=== PATIENT | female | born 1985 | race Caucasian/White ===

== ENCOUNTER 2025-03-18 09:54 | Inpatient (IN) | payer MEDICAID ==
[~2025-03-18] VITALS: Ht 162.6 cm; Wt 128.5 kg
[2025-03-18 10:26] VITALS: BP 154/95
[2025-03-18] MEDS ORDERED: Ondansetron Hydrochloride 4 MG/2 ML VIAL IV ONE (10:45)
[2025-03-18] MEDS ORDERED: SODIUM CHLORIDE 0.9% 1,000 ML IV ONE (10:45)
[2025-03-18] MEDS ORDERED: MORPHINE Sulfate 2 MG/ML SYR IV ONE (10:45)
[2025-03-18 10:54] LABS: BASO % 0.4 % (0.0-1.0); EOS # 0.4 10*3/uL (0.0-0.4); EOS % 5.5 % (1.0-4.0); HEMATOCRIT 46.6 % (37.0-47.0); MEAN CELL VOLUME 90.1 fl (81.0-99.0); MEAN CORPUSCULAR HGB 29.6 pg (27.0-31.0); MEAN CORPUSCULAR HGB CONC 32.8 g/dl (33.0-37.0); MEAN PLATELET VOLUME 9.7 fl (9.6-12.3); MONO # 0.5 10*3/uL (0.1-1.0); MONO % 6.6 % (3.0-9.0); NEUT # 4.3 10*3/uL (2.3-7.9); NEUT % 55.3 % (47.0-73.0); PLATELET COUNT AUTOMATED 341 10*3/uL (130-400); RED BLOOD COUNT 5.17 10*6/uL (4.10-5.10); RED CELL DISTRI WIDTH 13.2 % (0-14.5); WHITE BLOOD COUNT 7.7 10*3/uL (4.8-10.8)
[2025-03-18] MEDS ORDERED: IOHEXOL 300 MG/ML 100 ML VIAL IV ONE (11:10)
[2025-03-18 11:12] LABS: ALKALINE PHOSPHATASE 55 U/L (46-116); BUN 7 mg/dl (9-23); CHLORIDE 105 mmol/L (98-107); LIPASE 30 U/L (12-53); POTASSIUM 4.1 mmol/L (3.4-5.1); SGPT/ALT 15 U/L (5-49); TOTAL PROTEIN 7.5 gm/dL (6.0-8.0)
[2025-03-18 12:03] LABS: BILIRUBIN Negative (Negative); BLOOD Negative (Negative); CLARITY Cloudy (Clear); COLOR Yellow (Yellow); GLUCOSE Negative (Negative); KETONE Negative (Negative); LEUKO ESTERASE 1+ (Negative); NITRITE Negative (Negative); PH 5.5 (4.5-8.0)
[2025-03-18 12:30] LABS: BACTERIA 1+
[2025-03-18] MEDS ORDERED: Piperacillin Sodium/Tazobact 50 ML IV ONE (12:30)
[2025-03-18] MEDS ORDERED: Magnesium Hydroxide 30 ML UDC PO PRN (13:35)
[2025-03-18] MEDS ORDERED: ACETAMINOPHEN 650 MG SUPP R PRN (13:35)
[2025-03-18] MEDS ORDERED: MORPHINE Sulfate 2 MG/ML SYR IV PRN (13:35)
[2025-03-18] MEDS ORDERED: Ondansetron Hydrochloride 4 MG/2 ML VIAL IV PRN (13:35)
[2025-03-18] MEDS ORDERED: BISACODYL 10 MG SUPP R PRN (13:35)
[2025-03-18] MEDS ORDERED: BISACODYL 5 MG TAB PO PRN (13:35)
[2025-03-18] MEDS ORDERED: ACETAMINOPHEN 325 MG TAB PO PRN (13:35)
[2025-03-18] MEDS ORDERED: SODIUM CHLORIDE 0.9% 1,000 ML IV SCH (13:40)
[2025-03-18 17:15] VITALS: BP 128/76
[2025-03-18] MEDS ORDERED: Piperacillin Sodium/Tazobact 50 ML IV SCH (18:00)
[2025-03-18 21:30] VITALS: BP 139/77
[2025-03-19] VITALS: BP 138/70
[2025-03-19] MEDS ORDERED: Pantoprazole Sodium 40 MG TAB PO SCH (06:00)
[2025-03-19 07:09] LABS: ACT PARTIAL THROMBO TIME 28.1 SECONDS (20.0-32.1)
[2025-03-19 07:43] LABS: ALKALINE PHOSPHATASE 50 U/L (46-116); BUN 6 mg/dl (9-23); CHLORIDE 104 mmol/L (98-107); CHOLESTEROL 181 mg/dL (<200); FREE T4 1.18 ng/dl (0.89-1.76); LDL CHOLESTEROL 125 mg/dL (9-159); POTASSIUM 4.1 mmol/L (3.4-5.1); SGPT/ALT 14 U/L (5-49); TOTAL PROTEIN 7.1 gm/dL (6.0-8.0); TRIGLYCERIDES 119 mg/dl (<150)
[2025-03-19 08:00] VITALS: BP 136/96; BP 153/92
[2025-03-19 08:21] LABS: BASO % 0.5 % (0.0-1.0); EOS # 0.4 10*3/uL (0.0-0.4); EOS % 4.9 % (1.0-4.0); HEMATOCRIT 45.7 % (37.0-47.0); MEAN CELL VOLUME 90.7 fl (81.0-99.0); MEAN CORPUSCULAR HGB 29.2 pg (27.0-31.0); MEAN CORPUSCULAR HGB CONC 32.2 g/dl (33.0-37.0); MONO # 0.5 10*3/uL (0.1-1.0); MONO % 7.2 % (3.0-9.0); NEUT # 3.7 10*3/uL (2.3-7.9); NEUT % 49.8 % (47.0-73.0); PLATELET COUNT AUTOMATED 372 10*3/uL (130-400); RED BLOOD COUNT 5.04 10*6/uL (4.10-5.10); RED CELL DISTRI WIDTH 13.4 % (0-14.5); WHITE BLOOD COUNT 7.4 10*3/uL (4.8-10.8)
[2025-03-19 09:08] LABS: VITAMIN D, 25-HYDROXY 18.6 ng/mL (30-100)
[2025-03-19] MEDS ORDERED: Enoxaparin Sodium 40 MG/0.4 ML SYR SC SCH (10:00)
[2025-03-19 12:00] VITALS: BP 145/86
[2025-03-19] MEDS ORDERED: CIPRO500 MG PO (12:54)
[2025-03-19] MEDS ORDERED: METRONIDAZOLE500 M1 PO (12:54)
== END 2025-03-19 13:30 | disposition home or self-care (01) | DRG 244 ==
LOC: ED 09:54 → 5E 12:51 → EDHOLD 12:51 → 5E 19:33
PROVIDERS: Internal Medicine; ADMIT Internal Medicine; ATTEND Internal Medicine
DX: K57.32 Diverticulitis of large intestine without perforation or abscess without bleeding (principal); E66.01 Morbid (severe) obesity due to excess calories; K76.0 Fatty (change of) liver, not elsewhere classified; F17.210 Nicotine dependence, cigarettes, uncomplicated; I10 Essential (primary) hypertension; D75.1 Secondary polycythemia; R82.71 Bacteriuria; Z71.6 Tobacco abuse counseling; Z98.51 Tubal ligation status